=== PATIENT | female | born 1945 | race Caucasian/White ===

== ENCOUNTER 2016-06-23 15:35 | Inpatient (IN) | payer OTHER ==
--- NOTE | 2016-06-23 15:52 | PROVIDER DOCUMENTATION ---
HPI-General Adult - General Chief Complaint: Altered Mental Status Stated Complaint: ams Time Seen by Provider: 06/23/16 15:45 Source: patient Allergies/Adverse Reactions: Patient Allergies Allergy/AdvReac Type Severity Reaction Status Date / Time Penicillins Allergy Mild Unknown Verified 06/23/16 15:38 morphine Allergy Unknown NAUSEA Verified 06/23/16 15:38 Home Medications: Home Medication List Medication Instructions Recorded Confirmed Last Taken Type Aripiprazole [Abilify] 20 mg PO QHS 03/19/16 03/19/16 1 Day Ago History Bisacodyl [Dulcolax] 10 mg PO DAILY PRN 03/19/16 03/19/16 Unknown History Calcium Carbonate/Vit D3 [Caltrate 1 each PO DAILY 03/19/16 03/19/16 03/19/16 History 600 + D] Diphenoxylate/Atropine [Lomotil] 1 each PO 4XDAY PRN PRN 03/19/16 03/19/16 Unknown History Divalproex [Depakote] 1,000 mg PO QHS 03/19/16 03/19/16 03/18/16 History Furosemide [Lasix] 60 mg PO QAM 03/19/16 03/19/16 03/19/16 History Iron,Carbonyl/Ascorbic Acid [Fe C 1 each PO BID 03/19/16 03/19/16 03/19/16 History Tablet] Nystatin Cream [Mycostatin Cream] 1 applicatn TOP TID 03/19/16 03/19/16 History Potassium Chloride 20 meq PO QAM 03/19/16 03/19/16 03/19/16 History Ranitidine HCl [Zantac] 300 mg PO QAM 03/19/16 03/19/16 03/19/16 History Spironolactone [Aldactone] 25 mg PO DAILY 03/19/16 03/19/16 03/19/16 History Tizanidine HCl [Zanaflex] 4 mg PO BID PRN PRN 03/19/16 03/19/16 Unknown History Fentanyl 100 Microgm/Hr Patch 1 each TD Q72H #2 patch 03/28/16 Unknown Rx [Duragesic 100 Microgm/Hr Patch] Hydrocodone/APAP 10 mg/325 mg 1 each PO Q6H PRN PRN #30 tablet 03/28/16 Unknown Rx [[place]ty-10] Mirtazapine [Remeron] 15 mg PO QHS #90 tablet 03/28/16 Unknown Rx Risperidone [Risperdal] 1 mg PO QAM #90 tablet 03/28/16 Unknown Rx - History of Present Illness -Gen Adult Nature of Presenting Problems: 70 yo WF is brought to ED by EMS from [facility] with cc of altered mental status. Upon arrival to ED, pt is a&o x 3. She does complain of generalized abdominal pain, and she has recent hx of UTI being treated by abx with 3 days left of her course. Location of Pain/Injury: reports: abdomen (generalized tenderness) Pain Radiation: reports: no radiation Severity: reports: mild Onset/Duration: reports: abrupt, just prior to arrival Timing: reports: still present, improving Context/Activities at Onset: reports: none Associated Symptoms: reports: other (altered mental status) Review of Systems - Adult - REVIEW OF SYSTEMS - ADULT Constitutional: reports: no symptoms reported. denies: chills, fever Eyes: reports: no symptoms reported. denies: blurred vision, double vision Ears, Nose, Mouth & Throat: reports: no symptoms reported. denies: ear discharge, sinus problem Cardiovascular: reports: no symptoms reported. denies: chest pain, syncope Respiratory: reports: no symptoms reported. denies: cough, shortness of breath Gastrointestinal: reports: abdominal pain Genitourinary: reports: other (current treatment for UTI, not chief complaint) Musculoskeletal: reports: no symptoms reported. denies: bone pain, joint swelling Integumentary: reports: no symptoms reported. denies: hives, mole changes Neurological: reports: other (altered mental status). denies: headache/ migraines, numbness Psychiatric: reports: no symptoms reported. denies: anxiety, depression Endocrine: reports: no symptoms reported. denies: cold intolerance, heat intolerance Hematologic/Lymphatic: reports: no symptoms reported. denies: blood clots, lymphedema Allergic/Immunologic: reports: no symptoms reported. denies: allergic reactions , eczema All Other Systems: Reviewed and Negative Past History - Adult - PAST MEDICAL HISTORY-ADULT Review of Records: reports: Old Records Reviewed, Nursing Assessment Review, Medications Reviewed Cardiovascular: reports: CHF, HTN, other (carotid blockage) Respiratory: reports: COPD, other (pulmonary fibrosis) Neurological: reports: other (bipolar ) Psychiatric: reports: bipolar Other Conditions: reports: other (IJ bypass ) - PRIOR SURGERIES/PROCEDURES Surgical/Procedure History: reports: hysterectomy, other (cystoscopy ) - IMMUNIZATION STATUS Childhood Immunizations: See Nurse Assessment Flu Vaccine: See Nurse Assessment - FAMILY HISTORY Family History: reviewed, not pertinent Physical Exam-General - PHYSICAL EXAM-ADULT Initial Vital Signs Reviewed: Yes - CONSTITUTIONAL General Appearance: alert, mild distress - EYES Eyes: PERRL/EOMI, pink conjunctivae - HEAD, EARS, NOSE, MOUTH & THROAT HENMT: normocephalic/atraumatic, moist mucous membranes - NECK Neck: limited range of motion (hx chronic neck pain) - RESPIRATORY Respiratory: chest non-tender, lungs clear, normal breath sounds - CARDIOVASCULAR Cardiovascular: normal peripheral pulses, systolic murmur - GASTROINTESTINAL (ABDOMEN) Abdominal Exam: normal bowel sounds, soft, tenderness (generalized) - GENITOURINARY Female Genitalia/Pelvic Exam: deferred Rectal Exam: deferred Hemoccult Exam: heme positive stool - LYMPHATIC Lymphatic: no adenopathy - MUSCULOSKELETAL Back Exam: normal inspection, no vertebral tenderness Extremity: swelling (bilateral to thighs) - SKIN Integumentary: pallor - NEUROLOGIC Neurologic: grossly normal, no motor/sensory deficits - PSYCHIATRIC Psych/Mental Status: normal mood/affect, normal thought content, normal thought process, oriented x 3 Progress - CONSULTS/PCP/HOSPITALIST Notification #1 *Consult/PCP/Hospitalist*: Dr. Reed Time Discussed: 15:56 Reason/Comments: GI consult Departure - Departure Condition: Stable Attestation - Scribe Verification/Attestation Scribe:: Sabrina Pride Acting as Scribe for:: Adarsh Patel Scribe documention review:: This chart was documented by a scribe and accurately reflects the service the provider performed and the decisions made by the provider. - Physician/ ADRIAN Attestation Patient care was provided by Advanced Practice Provider:: No
[2016-06-23 17:12] LABS: URINE CULTURE PL NEEDED? NO; URINE SOURCE CATH
[2016-06-23] MEDS ORDERED: NS 500 ML IV ONE ×2 (17:17→17:39)
[2016-06-23 17:19] LABS: BILIRUBIN URINE NEGATIVE (NEGATIVE); BLOOD URINE NEGATIVE (NEGATIVE); CLARITY CLEAR (CLEAR); COLOR YELLOW; GLUCOSE URINE NEGATIVE (NEGATIVE); LEUKOCYTES URINE NEGATIVE (NEGATIVE); NITRITE URINE NEGATIVE (NEGATIVE); PROTEIN URINE NEGATIVE (NEGATIVE); UROBILINOGEN URINE NORMAL
[2016-06-23 17:22] LABS: URINE EPITHELIAL CELLS <10 /HPF (<10)
[2016-06-23 17:25] LABS: ALBUMIN 2.2 g/dL (3.5-5.0); CALCIUM 8.3 mg/dL (8.8-10.2); POTASSIUM 5.6 mmol/L (3.5-5.1); TOTAL BILIRUBIN 0.4 mg/dL (0.20-1.00); TOTAL PROTEIN 5.6 g/dL (6.3-8.3)
[2016-06-23 17:26] LABS: INR 1.41 (0.86-1.15); PROTIME 17.5 Seconds (12.1-15.5)
[2016-06-23 17:27] LABS: PTT PL 37.3 Seconds (22.6-43.9)
[2016-06-23 17:30] LABS: BASO% 0.6 % (0.0-0.8); EOS# 0.03 X1000 (0.0-0.7); EOS% 0.5 % (0.0-10.0); HEMATOCRIT 18.5 % (37.0-47.0); HEMOGLOBIN 5.7 g/dL (12.0-16.0); IMM GRAN# 0.44 X1000 (0.0-0.04); IMM GRAN% 6.9 % (0.0-0.5); LYMPH# 1.29 X1000 (1.2-3.4); LYMPH% 20.3 % (20.5-51.1); MANUAL DIFF NEEDED? NO; MCH 29.7 PG (27-31); MCHC 30.8 g/dL (33-37); MCV 96.4 FL (81-99); MONO# 0.49 X1000 (0.11-0.59); MONO% 7.7 % (1.7-9.3); MPV 9.8 FL (7.4-10.4); PLT 42 X1000 (130-400); RBC 1.92 XMIL (4.2-5.4)
[2016-06-23 17:31] LABS: UR AMPHETAMINES QUAL NONE DETECTED (NONE DETECT); UR BARBITUATES QUAL NONE DETECTED (NONE DETECT); UR BENZODIAZEPIN QUAL NONE DETECTED (NONE DETECT); UR COCAINE QUAL NONE DETECTED (NONE DETECT); UR MDMA QUAL NONE DETECTED (NONE DETECT); UR METHADONE QUAL NONE DETECTED (NONE DETECT); UR METHAMPHETAMINE QUAL PRESUMPTIVE POSITIVE (NONE DETECT); UR OPIATES QUAL PRESUMPTIVE POSITIVE (NONE DETECT); UR OXYCODONE QUAL NONE DETECTED (NONE DETECT)
[2016-06-23 17:32] LABS: UR CANNABINOIDS QUAL NONE DETECTED (NONE DETECT); UR PCP QUAL NONE DETECTED (NONE DETECT); UR TCA QUAL NONE DETECTED (NONE DETECT)
[2016-06-23] MEDS ORDERED: PROTONIX 80 MG in NS 80 ML IV ONE (17:41)
[2016-06-23] MEDS ORDERED: PROTONIX 80 MG in NS 80 ML IV SCH (17:45)
[2016-06-23] MEDS ORDERED: ZOFRAN IV PRN (17:48)
[2016-06-23 17:59] LABS: CK INDEX 1.1 (0.0-2.5); CK-MB 3.7 ng/mL (0.0-5.0)
[2016-06-23] MEDS ORDERED: NS 1,000 ML IV SCH (18:00)
--- NOTE | 2016-06-23 18:07 | Diag Imaging Result Document ---
PROCEDURE NAME: CHEST-PORTABLE - 06/23/2016 PORTABLE CHEST: COMPARISON: Compared to several prior exams. Poor inspiratory effort. There are increased interstitial markings in both lungs. These are most pronounced in the mid left lung. Findings are quite similar to that of multiple prior studies. No pleural effusions identified. IMPRESSION: Increased interstitial markings consistent with fibrosis. Findings are most pronounced in the mid left lung.
[2016-06-23 19:39] LABS: OCCULT BLOOD 1 POSITIVE (NEGATIVE)
[2016-06-23] MEDS ORDERED: VANCOMYCIN IV PER PHARMACY MISC SCH (19:45)
[2016-06-23] MEDS ORDERED: INVANZ 1 GM/NS 50 ML IV SCH (20:15)
[2016-06-23] MEDS: INVANZ IV SCH (20:53)
[2016-06-23] MEDS: NS IV SCH (20:53)
[2016-06-23] MEDS ORDERED: VITAMIN K SUBQ ONE ×2 (22:28→22:45)
[2016-06-23 23:14] LABS: HEMATOCRIT 23.1 % (37.0-47.0); HEMOGLOBIN 7.5 g/dL (12.0-16.0); MCH 30.6 PG (27-31); MCHC 32.5 g/dL (33-37); MCV 94.3 FL (81-99); MPV 8.6 FL (7.4-10.4); RBC 2.45 XMIL (4.2-5.4)
[2016-06-23] MEDS ORDERED: LASIX IV ONE (23:41)
[2016-06-23 23:55] LABS: CK-MB 3.7 ng/mL (0.0-5.0)
--- NOTE | 2016-06-24 04:04 | HISTORY AND PHYSICAL ---
CHIEF COMPLAINT: Altered mental status. HISTORY OF PRESENT ILLNESS: This is a 70-year-old female, who is a resident of [facility]. She presented to the emergency room via EMS with reports from [facility] staff saying that the patient was more altered than baseline. On arrival to the emergency room, she was alert and oriented. She could tell her birthday. She knew she was at the hospital, although she was not sure if it was [facility] or [facility] [place]. She was able to tell where she lived. She could give no specific complaint. When asked why she was here, she told me "because I would not do what they said, I would stand up, so then sent me here to teach me a lesson". At the time of the interview, the patient was in Trendelenburg with blood pressures that ran 96-98 to 104 systolic. Heart rate was 98-102. She was on oxygen at 3 L with saturations, that were 97-98%. There were no family present, so further information cannot be obtained. LABS: She was found to have a hemoglobin of 5.7, hematocrit 18.5, and platelets of 42,000. In review of her prior lab work, she was in the hospital in March and hemoglobin ranged 8-9.6 and hematocrit was 26-30. In review of the chart, I cannot find a prior history of GI bleed. MEDICATION LIST: The list is not available at this time, but she was not on any anticoagulants on discharge in March. She will be admitted to ICU at [facility] [place] for further evaluation and treatment. PAST MEDICAL HISTORY: Aortic stenosis, chronic obstructive pulmonary disease, atrial fibrillation, diastolic heart failure with an ejection fraction of 75% in March of 2016, bipolar disorder, gastroesophageal reflux disease, and myelodysplasia. She had a extended spectrum beta-lactamase positive Escherichia coli urinary tract infection in March,. She also has a culture from June 12 that is extended spectrum beta-lactamase positive, for which he underwent 3 weeks plus vancomycin and ertapenem. Received antibiotic coverage for in- hospitalization, as well as 3 weeks of vancomycin and ertapenem after discharge, finishing therapy in April 17, 2016. PAST SURGICAL HISTORY: Hysterectomy, ileal bypass, cystoscopy, carotid end arterectomy, looks like lower extremity bypass for peripheral vascular disease. SOCIAL HISTORY: She denies alcohol or illicit drug use. She smoked until 2 years ago. ALLERGIES: Penicillin and morphine with unknown reactions. HOME MEDICATIONS: A list will be obtained. DIAGNOSTICS: WBC is 6.37 with hemoglobin 5.7, hematocrit 18.5, and platelets of 42,000. INR is 1.41. Sodium is 128, potassium 5.6, BUN 43, creatinine 1.5, with a glucose of 97. Troponin is 0.033. Urinalysis is essentially negative. Urine drug screen is positive for opiates. Blood alcohol is 0. ASSESSMENT AND PLAN: 1. Altered mental status. We were unable to assess at present. We were not quite sure what the patient's baseline is. There are no family present. She will be placed in ICU with neurological checks and we will re-evaluate. 2. Gastrointestinal bleeds. I cannot find anywhere in the chart that the patient has a history of a prior gastrointestinal bleed. I cannot find documentation of any anticoagulation. She did have melena with reported occult positive stools in the emergency room. The hemoglobin and hematocrit is 5.7 and 18.5. She also has platelets of 42,000. She has been typed and crossed. We will give 2 units of packed cells, along with platelets. We will give Protonix bolus, followed by a Protonix drip. Dr. Yasir Sequeira and Gastroenterology has been notified per the ER physician, Dr. Adarsh Patel. 3. Acute kidney injury. Creatinine is 1.5, BUN is 43. In looking back her baseline has been 0.9- 1.2. She did have a history of retention. A Elias was placed and 500 returned. We will gently hydrate. We will hold any renal toxic medications. This could be from hypotension. If hypotension is a component, as stated before she will receive fluid and blood replacement. 4. Hypoxemia. She did have a room air saturation of 89% on arrival. She is on 3 L right now, maintaining sats 96-98%. We will continue oxygen. 5. Hypotension. Pressures have been as low as the 86/56. She was in slight Trendelenburg. We will start gentle hydration. Trend vital signs and administer blood. 6. Hyponatremia. 7. Hyperkalemia. We will continue to trend electrolytes. 8. History of aortic stenosis. 9. History of diastolic heart failure with an ejection fraction of 75% in March,. 10. Extended spectrum beta-lactamase positive Escherichia coli urinary tract infection. She had this in March and underwent a long-term of antibiotics of ertapenem and vancomycin. In reviewing her chart, she does have a culture from June 12, that once again has extended spectrum beta-lactamase positive Escherichia coli. We will consult Dr. Jules once again. We will get repeat vancomycin per pharmacy. Infectious Disease and antibiotics to follow. 11. Others. Further treatments pending hospital course. Dictated by RUTHIE Stanford for Mario Crawley MD
[2016-06-24] MEDS ORDERED: PROTONIX IV SCH (06:00)
[2016-06-24] MEDS ORDERED: ZOFRAN IV PRN (06:00)
[2016-06-24] MEDS: PROTONIX 80 MG in NS 80 ML IV SCH ×2 (06:42→16:14)
[2016-06-24] MEDS ORDERED: PROTONIX 80 MG in NS 80 ML IV ONE (07:00)
[2016-06-24] MEDS: NS 1,000 ML IV SCH (08:00)
[2016-06-24 09:13] LABS: ALBUMIN 2.5 g/dL (3.5-5.0); CALCIUM 8.4 mg/dL (8.8-10.2); TOTAL BILIRUBIN 0.51 mg/dL (0.20-1.00); TOTAL PROTEIN 5.9 g/dL (6.3-8.3)
[2016-06-24 09:26] LABS: INR 1.27; PROTIME 12.9 Seconds (9.2-11.7)
[2016-06-24 09:32] LABS: HEMATOCRIT 24.8 % (37.0-47.0); HEMOGLOBIN 8.1 g/dL (12.0-16.0); MCH 30.6 PG (27-31); MCHC 32.7 g/dL (33-37); MCV 93.6 FL (81-99); MPV 8.3 FL (7.4-10.4); RBC 2.65 XMIL (4.2-5.4)
[2016-06-24] MEDS: SANDOSTATIN 500 MICROGM in D5W 100 ML IV SCH (09:38)
[2016-06-24 09:45] LABS: CK INDEX 0.9 (0.0-2.5); CK-MB 2.74 ng/mL (0.0-5.0)
--- NOTE | 2016-06-24 10:39 | PROGRESS NOTE ---
DATE: 06/24/2016 SUBJECTIVE: Ms. Valentino said, "Please, let me go home today." She is still in the unit. Very weak, confused. She is oriented to person. She knows she is in the hospital but otherwise trouble certainly with abstract thought and with executive functions. PHYSICAL EXAMINATION: Vital Signs: Temperature 98 degrees, pulse 100, respirations 20, blood pressure 98/68. HEENT: Pupils are equal, round. CVP less than 6 cm. Lungs: Clear in all lung prieto. Cardiovascular Examination: Regular rhythm and rate without murmur or S3. Abdomen: Soft. Skin: Warm and dry. Urine output 1250. LABORATORY DATA: White count 5970, hematocrit 24, platelet count 72,008. Sodium 136, potassium 5, chloride 90, BUN 42, creatinine 1.3. Troponin has been 0.033, 0.025, and 0.024. Chest x-ray from yesterday on arrival, increased interstitial markings consistent with fibrosis. Findings are most pronounced in the mid left lung. REVIEW: This is a 70-year-old, white female, resident of [facility]. Presented to the emergency room with EMS, reports from [facility] staff saying the patient was more altered than baseline. On arrival to the emergency room, she was alert and oriented. Could tell her birthday. She knew she was at the hospital, although she is not sure if she was at [facility] or [facility]. She was able to tell where she lives. She gave no specific complaint. When asked why she was here, she told me "because I would not do what they said. I would stand up so then they sent me to teach me a lesson." At that time in the interview, the patient was in Trendelenburg with blood pressures that were 96-98-104 systolic. Her rate was 98- 102. O2 was at 3 L, saturations 97-98%. Labs found hemoglobin of 5.7, hematocrit 18.5, platelet count of 42,008. In review of her old lab work, hemoglobin was 8.9-9.6 and hematocrit usually runs 26-30. Admitted with altered mental status, gastrointestinal bleed, acute kidney injury. Creatinine 1.5. Baseline is 0.9-1.2. Hypoxemia and hypotension, hyponatremia, hypokalemia, history of aortic stenosis, history of diastolic heart failure. Ejection fraction apparently was 75% in March 2016. She has had a history of extended spectrum beta lactamase positive E. coli urinary tract infection. She had this in March. Long-term antibiotics, on ertapenem and vancomycin for extended-spectrum beta lactamase positive E. coli. Dr. Jules has been consulted on the case as well for that history. EXAMINATION: General: Today awake as I reported. Vital Signs: Temperature 98 degrees, pulse 102, respirations 20, blood pressure 98/68. Lungs: Clear in all lung prieto. Cardiovascular Examination: Regular rhythm and rate without murmur or S3. Abdomen: Soft. Skin: Warm and dry. Is and Os: Urine output was 1250. REST OF LABS: Sodium 136, potassium 5, chloride 93, BUN 42, creatinine 1.3. AST 41, ALT 12, alkaline phosphatase 164. ASSESSMENT AND PLAN: 1. Altered mental status. I suspect this is multifactorial. Nurses remember him from before. I am not sure how far we are from baseline. I suspect some underlying dementia. 2. Gastrointestinal bleed. She is supposed to get an esophagogastroduodenoscopy today. Hematocrit and hemoglobin appear to be stable. She was given 2 units of blood. 3. Acute kidney injury. I suspect this will improve with volume. Suspect it is mainly prerenal. 4. Hypoxemia. She does appear to have some fibrosis on her chest x-ray. I do not see any active infection or infiltrate. 5. Hypotension. Continue to give her intravenous fluids. 6. Hyponatremia. Once again, I think intravenous fluids would be luong. Her mucous membranes appear dry. 7. History of diastolic failure so continue present measures. Continue present orders.
[2016-06-24] MEDS ORDERED: MYLICON DROPS (DOSE) MISC ONE (11:07)
--- NOTE | 2016-06-24 11:19 | Diag Imaging Result Document ---
PROCEDURE NAME: US ABDOMEN-COMPLETE - 06/24/2016 ULTRASOUND ABDOMEN COMPLETE, 06/24/2016: COMPARISON: Renal ultrasound 03/25/2016. FINDINGS: The exam is technically challenging due to patient noncooperation. There are a couple of rather large shadowing gallstones in the gallbladder measuring up to 1.4 cm. No gallbladder wall thickening or free fluid. The liver and pancreas are normal. The right kidney is normal. The spleen and left kidney were not visible due to patient noncooperation. Aorta IVC and main portal vein are patent. The common bile duct measures 4 mm. IMPRESSION: Cholelithiasis.
[2016-06-24] MEDS ORDERED: DIPRIVAN 1% ONE (12:01)
[2016-06-24] MEDS ORDERED: XYLOCAINE-MPF 2% ONE (12:52)
[2016-06-24] MEDS ORDERED: ANESTHESIA PB SET 88 IN 5742 ONE (12:52)
[2016-06-24] MEDS ORDERED: LR 1,000 ML ONE (12:52)
--- NOTE | 2016-06-24 13:11 | OPERATIVE NOTE ---
PROCEDURE DATE: 06/24/2016 PROCEDURE PERFORMED: Esophagogastroduodenoscopy. PROVIDER: Aristeo Cason MD PREOPERATIVE DIAGNOSES: 1. Melena. 2. Anemia. 3. Elevated liver enzymes, thrombocytopenia (platelet count 42,000), and coagulopathy (INR 1.4), unknown etiology, question of chronic liver disease. 4. Altered mental status on admission and it has improved. POSTOPERATIVE DIAGNOSES: 1. Normal esophagus in the proximal and middle 1/3. 2. Distal esophagus showing erythema and erosions, suggesting [place] grade 2 distal esophagitis. 3. Z-line visualized at 35 cm, irregular. 4. Hiatal hernia, measuring 3 cm. 5. Bile in the stomach, suction out. 6. Gastritis-like, chronic appearing, in the body antrum. 7. Normal fundus, cardia, and incisura on retroflexion. 8. Normal duodenal bulb and 2nd portion of duodenum. No evidence of active bleeding, fresh or old blood, on the entire esophagogastroduodenoscopy. ESTIMATED BLOOD LOSS: None. COMPLICATIONS: None. ANESTHESIA: Monitored anesthesia care. SPECIMENS: None. DESCRIPTION OF PROCEDURE: After informed consent from the patient, explaining the risks, benefits, indications, and alternatives, the patient was prepared for EGD. The risks of the procedure, including infection, bleeding, pain, trauma to the surrounding structures, perforation, , were explained to the patient, among others, and she acknowledged understanding and agreed to proceed. The patient was brought to the OR and turned into the left lateral position. A bite block was placed. After adequate monitored anesthesia care, the upper scope was gently introduced through the oral vestibule all the way to the 2nd portion. The esophagus was normal in the proximal and middle 1/3. The distal esophagus revealed erythema and erosions, suggesting esophagitis, LA grade 2. The Z-line was visualized 35 cm. There was evidence of a hiatal hernia, measuring 3 cm. The scope was then introduced to the stomach. There was evidence of bile in the stomach, which was suctioned out. The underlying gastric mucosa showed evidence of mucosal edema, suggesting chronic gastritis. Retroflexion revealed normal fundus, cardia, and incisura. We did not perform biopsy. The patient has thrombocytopenia and anemia. There was no evidence of any gastric varices. The scope was gently advanced to the duodenum, which showed normal duodenal bulb and 2nd portion. There was no evidence of active bleeding, fresh or old blood, in the entire EGD. There was no evidence of any esophageal varices. The air was aspirated as the scope was withdrawn. The patient tolerated the procedure well and is currently being monitored in the OR in stable condition. I discussed the findings with the patient upon waking up and all questions were answered. RECOMMENDATIONS: 1. The patient will be on Protonix once daily. 2. We will watch her hemoglobin and hematocrit and transfuse as needed. 3. We will perform chronic liver disease workup and check an ultrasound to evaluate for liver cirrhosis. 4. We will schedule for colonoscopy tomorrow for anemia workup. 5. Further recommendations to follow pending the above. [facility]
[2016-06-24] MEDS ORDERED: GOLYTELY PO ONE (14:00)
[2016-06-24] MEDS: NS IV SCH (20:38)
[2016-06-24] MEDS: INVANZ IV SCH (20:38)
[2016-06-25] MEDS: PROTONIX 80 MG in NS 80 ML IV SCH ×4 (02:20→21:51)
[2016-06-25] MEDS: NS 1,000 ML IV SCH ×2 (02:20→11:50)
[2016-06-25] MEDS: SANDOSTATIN 500 MICROGM in D5W 100 ML IV SCH (05:15)
--- NOTE | 2016-06-25 07:43 | PROGRESS NOTE ---
DATE: 06/25/2016 SUBJECTIVE: Ms. Valentino is resting comfortably. Is easy to arouse. Breathing comfortably. OBJECTIVE: Vital Signs: Temperature 97 degrees, pulse 113, respirations 22, blood pressure 132/83. HEENT: Pupils are equal and round. Neck: CVP less than 6 cm. Lungs: Clear in all lung prieto. Cardiovascular: Regular rhythm and rate without murmur or S3. Urine output 435 mL. LAB: White count 5970, hematocrit 24, platelet count 72,000. That was from yesterday. Chemistry reviewed from yesterday sodium 136, potassium 5.0, chloride 93, BUN 40, creatinine 1.3. Mild elevation of AST at 41, ALT was 12, alkaline phosphatase 164. CPK 367, 319. Ammonia less than 10. Albumin 2.5. ASSESSMENT AND PLAN: 1. Altered mental status. Suspect multifactorial. 2. Gastrointestinal bleeding. Esophagogastroduodenoscopy was performed per Dr. Grady and found a normal esophagus. Distal esophagus showing erythema and erosions suggesting [place] Grade II distal esophagitis. Hiatal hernia measuring 3 cm. Bile in the stomach was suctioned out. Gastritis-like, chronic appearing in the body of atrium. Normal fundus, cardia, and incisura. Normal duodenal bulb and second portion of duodenum. No evidence of active bleeding. Had successful esophagogastroduodenoscopy. See what her hematocrit is. I think she got 2 units of blood. 3. Acute kidney injury. She had some hypoxemia. There is some fibrosis on chest x-ray. 4. She also had some hypotension. Blood pressure appears to be better.
[2016-06-25 09:13] LABS: BASO% 0.7 % (0.0-0.8); EOS# 0.05 X1000 (0.0-0.7); EOS% 0.7 % (0.0-10.0); HEMATOCRIT 26.1 % (37.0-47.0); HEMOGLOBIN 8.2 g/dL (12.0-16.0); IMM GRAN# 0.44 X1000 (0.0-0.04); IMM GRAN% 6.5 % (0.0-0.5); LYMPH# 1.13 X1000 (1.2-3.4); LYMPH% 16.7 % (20.5-51.1); MANUAL DIFF NEEDED? YES; MCH 29.4 PG (27-31); MCHC 31.4 g/dL (33-37); MCV 93.5 FL (81-99); MONO# 0.53 X1000 (0.11-0.59); MONO% 7.8 % (1.7-9.3); NEUT% 67.6 % (42.2-75.2); PLT 41 X1000 (130-400); RBC 2.79 XMIL (4.2-5.4)
[2016-06-25] MEDS ORDERED: CALMOSEPTINE OINTMENT TOP PRN (09:16)
--- NOTE | 2016-06-25 09:25 | Diag Imaging Result Document ---
PROCEDURE NAME: CHEST-PORTABLE - 06/25/2016 SINGLE FRONTAL RADIOGRAPH OF THE CHEST: COMPARISON: 06/23/2016. FINDINGS: Inspiration is suboptimal. There is extensive interstitial thickening throughout both lungs that is similar to the previous study consistent with known pulmonary fibrosis. There are increased perihilar densities. I suppose a superimposed infiltrate is possible. However, this is probably due to differences in positioning and exposure. No other new consolidations are identified. Cardiac silhouette is stable. IMPRESSION: Pulmonary fibrosis with slight increased density in the perihilar regions bilaterally but this could be technical.
[2016-06-25 10:10] LABS: BANDS 26 % (0-1); LYMPHS 14 % (21-51); MONO 2 % (1-9)
[2016-06-25 10:15] LABS: ALBUMIN 2.3 g/dL (3.5-5.0); CALCIUM 7.8 mg/dL (8.8-10.2); POTASSIUM 3.8 mmol/L (3.5-5.1); TOTAL BILIRUBIN 0.56 mg/dL (0.20-1.00); TOTAL PROTEIN 5.8 g/dL (6.3-8.3)
[2016-06-25] MEDS ORDERED: MYLICON DROPS (DOSE) MISC ONE (13:50)
[2016-06-25] MEDS ORDERED: VERSED ONE (14:33)
[2016-06-25] MEDS ORDERED: DIPRIVAN 1% ONE (14:34)
[2016-06-25] MEDS ORDERED: 1/2 NS 500 ML ONE (14:40)
[2016-06-25] MEDS ORDERED: ANESTHESIA PB SET 88 IN 5742 ONE (14:41)
--- NOTE | 2016-06-25 14:41 | OPERATIVE NOTE ---
PROCEDURE DATE: 06/25/2016 PROCEDURE: Flexible sigmoidoscopy. PREOPERATIVE DIAGNOSIS: Anemia. Patient is prepped for colonoscopy. POSTOPERATIVE DIAGNOSIS: Retained stool. Hard stool in the rectum, inadequate prep. DESCRIPTION OF PROCEDURE: After informed consent and adequate intravenous sedation by Anesthesia, the scope introduced and advanced into the sigmoid colon. However, the patient has retained stool. I was unable to wash it down because it was fairly firm. At this point, the scope was withdrawn. We will prep her until at least the rectum is empty from the hard stool and will repeat the colonoscopy in the morning.
[2016-06-25] MEDS ORDERED: GOLYTELY PO ONE (16:00)
[2016-06-25 16:28] LABS: HEPATITIS PROFILE ACUTE SEE COMMENTS (())
[2016-06-25] MEDS: NS IV SCH (20:42)
[2016-06-25] MEDS: INVANZ IV SCH (20:42)
[2016-06-26] MEDS ORDERED: LASIX IV ONE (00:57)
[2016-06-26] MEDS ORDERED: NS NEB INH SCH (01:00)
[2016-06-26] MEDS ORDERED: DUONEB (A & A) ONE (01:22)
[2016-06-26] MEDS: SANDOSTATIN 500 MICROGM in D5W 100 ML IV SCH ×2 (01:30→23:10)
[2016-06-26] MEDS: NS 1,000 ML IV SCH ×3 (01:30→23:11)
[2016-06-26] MEDS ORDERED: LEVOPHED 8 MG in D5 1/2 NS 250 ML IV SCH (03:00)
[2016-06-26 03:11] LABS: ALLEN TEST YES; BE 0.8 mmoll (-3.0-3.0); BLOOD TYPE ARTERIAL; DRAW SITE L RADIAL; METHB 1.6 % (0.0-1.5); PO2(98.6) 144 mmHg (60-100); SAMPLE BLOOD; SAO2 98.4 % (95.0-100.0); THB 8.7 g/dL (11.5-17.4)
[2016-06-26 03:12] LABS: pH(98.6) 7.17 (7.35-7.45)
[2016-06-26 03:13] LABS: MODALITY PRB; PCO2(98.6) 83 mmHg (35-45)
[2016-06-26 03:48] LABS: BASO% 1.2 % (0.0-0.8); EOS# 0.06 X1000 (0.0-0.7); EOS% 0.7 % (0.0-10.0); HEMATOCRIT 26.4 % (37.0-47.0); HEMOGLOBIN 8.3 g/dL (12.0-16.0); IMM GRAN# 0.63 X1000 (0.0-0.04); LYMPH# 1.37 X1000 (1.2-3.4); LYMPH% 15.3 % (20.5-51.1); MANUAL DIFF NEEDED? YES; MCH 30.1 PG (27-31); MCHC 31.4 g/dL (33-37); MCV 95.7 FL (81-99); MONO# 0.81 X1000 (0.11-0.59); MONO% 9.1 % (1.7-9.3); MPV 10.1 FL (7.4-10.4); NEUT% 66.7 % (42.2-75.2); PLT 75 X1000 (130-400); RBC 2.76 XMIL (4.2-5.4)
[2016-06-26 03:54] LABS: INR 1.07; PROTIME 10.9 Seconds (9.2-11.7); PTT 23.7 Seconds (22.0-36.0)
[2016-06-26 04:00] LABS: RETIC% 1.62 % (0.8-2.1); RETIC-HE 31.4 PG (28.2-36.6)
[2016-06-26 04:12] LABS: TOTAL IRON 106 ug/dL (49-151)
[2016-06-26 04:22] LABS: LDH 1213 U/L (135-214)
[2016-06-26 04:25] LABS: BANDS 14 % (0-1); BASO 2 % (0-1); LYMPHS 18 % (21-51); MONO 8 % (1-9); NRBC 1 % (0-0)
--- NOTE | 2016-06-26 07:42 | Diag Imaging Result Document ---
PROCEDURE NAME: CHEST-PORTABLE - 06/25/2016 PORTABLE CHEST X-RAY AT 1750 HOURS: COMPARISON: 0815 hours. FINDINGS: There is a new nasogastric tube with the tip in the stomach. Stable bilateral infiltrates. IMPRESSION: Nasogastric tube with the tip in the stomach.
--- NOTE | 2016-06-26 07:52 | Diag Imaging Result Document ---
PROCEDURE NAME: CHEST-PORTABLE - 06/26/2016 PORTABLE CHEST X-RAY: COMPARISON: 06/25/2016. FINDINGS: Stable nasogastric tube in good position. Stable dense bilateral infiltrates. Heart size is enlarged. Stable low lung volumes. IMPRESSION: No change from prior.
[2016-06-26] MEDS: XOPENEX NEB INH PRN ×3 (08:36→16:19)
[2016-06-26] MEDS: ATROVENT NEB INH PRN ×3 (08:36→16:19)
[2016-06-26] MEDS ORDERED: VITAMIN K SUBQ ONE (09:32)
--- NOTE | 2016-06-26 10:10 | PROGRESS NOTE ---
DATE: 06/26/2016 SUBJECTIVE: Ms. Valentino apparently had a rough night. Her blood pressure started dropping. She has atrial fibrillation. Rate increased. OBJECTIVE: Vital signs: On exam, she is afebrile, temp 98.4. Pulse 100, respirations 26, blood pressure 139/72. HEENT: Pupils are equal, round, and reactive to light and accommodation. Lungs: Some scattered rhonchi but do not appreciate rales. Scattered rhonchi through lung prieto. Cardiovascular: Regular rhythm and rate without murmur or S3. Abdomen: Soft. Skin: Warm and dry. Urine output 1300 mL. LAB: White count 8950, hematocrit 26, platelet count 75,000. Sodium 130. This is from yesterday. Sodium was 138, potassium 3.8, chloride 95, bicarb 22, BUN 34, creatinine 1.1. IMAGING: Chest x-ray from this morning no change. Stable nasogastric tube in good position, stable dense bilateral infiltrates. Heart size enlarged. Stable low lung volumes. ASSESSMENT AND PLAN: 1. Altered mental status, multifactorial. 2. Gastrointestinal bleeding. They would like to do an EGD but they are going to postpone this. Blood pressure dropped, heart rate went up and required some pressors through the night. 3. Acute kidney injury. 4. Had some hypoxemia on presentation and a little more shortness of breath last night. 5. Bilateral infiltrates. She does have underlying fibrosis, apparently, as well. I think I am going to get Pulmonary involved as well as Cardiology to try and sort out why she is having more dyspnea, to what extent is this related to left ventricular dysfunction. Looking through the orders, I am going to go back on the normal saline at 75 mL/h. because she is on the octreotide. I do not see evidence of active bleeding at this time.
[2016-06-26] MEDS: PROTONIX 80 MG in NS 80 ML IV SCH ×3 (10:17→20:36)
--- NOTE | 2016-06-26 12:17 | CONSULTATION ---
DATE OF CONSULTATION: 06/26/2016 INDICATION: Atrial fibrillation. HISTORY OF PRESENT ILLNESS: Ms. Valentino is a 70-year-old white female, who is a resident of [facility]. She presented for evaluation on the and the initial report was that she was having altered mental status but it was unclear on her presentation whether this was truly occurring. She was noted to have a new anemia with no previous history of GI bleed; however, she does have a history of MDS. She was admitted for further evaluation. Over the course of the hospitalization, she has continued to deteriorate. She has been evaluated by GI and was found to have esophagitis, hiatal hernia, and gastritis. No clear evidence of active bleeding. She has some presence of acute kidney injury, as well as hypotension. She seems to be deteriorating from a respiratory standpoint as well. She was placed on BiPAP ultimately. Last night she went into atrial fibrillation and more recently has been noted to be in sinus rhythm this morning. Presently, she is on BiPAP with an inspiratory pressure 20 and expiratory pressure of 6. She is not able to really give much history, as she is very somnolent, but seems to be able to understand questioning. PAST MEDICAL HISTORY: 1. Significant for aortic stenosis. Previous echo suggested it was in a moderate area with a mean gradient of 34 and a valve area of 1.3. EF's at that time were normal. 2. Diastolic heart failure. 3. Mild coronary disease. 4. History of peripheral vascular disease. 5. Hypertension. 6. Carotid artery disease. 7. Seizure disorder. 8. Myelodysplastic syndrome. 9. Reflux disease. SOCIAL HISTORY: No alcohol or illicit drugs. She currently lives at [facility]. FAMILY HISTORY: Unable to be obtained secondary to BiPAP being in place presently. REVIEW OF SYSTEMS: Unable to be obtained secondary to BiPAP being in place presently. PHYSICAL EXAMINATION: During this hospitalization she has been afebrile. Heart rate presently is in the low 100 with a blood pressure 139/72.General Appearance: Generally, she is an ill- appearing white female. Somewhat pale. No acute distress. HEENT: Eye examination shows pale conjunctivae. White sclerae. Neck Examination: No obvious thyromegaly or thyroid tenderness. Cardiovascular: She is in a tachycardic and regular rhythm. Currently in sinus. She has a 2 to 3/6 systolic murmur at the right upper sternal border. She has no lower extremity edema. Warm and well perfused lower extremities. Chest Examination: Has coarse bilateral breath sounds throughout. No increased work of breathing. She is currently on BiPAP. Abdomen: Soft, nontender, nondistended. Good bowel sounds. Skin Examination: Warm and dry throughout without any rashes. Neurologic Examination: Very difficult to perform secondary to the patient's decreased level of mentation. Psychiatric Examination: Very difficult to perform secondary to the patient's decreased level of mentation. Chest x-ray shows NG tube in good position. Stable dense bilateral infiltrates. LABORATORY DATA: Demonstrates a white count 8.9, hematocrit 26.4, platelet count is 75,000. Her ABG shows a pH of 7.17, pCO2 of 83, pO2 is 144. Yesterday her sodium is 138, potassium 3.8, BUN 34, creatinine 1.1. She had a ferritin of 17 and 95. Her LDH level is 1213. She had an echocardiogram on the 25 of March showing an ejection fraction greater than 75%. She had a mean gradient of 32 across her aortic valve with a valve area of 1.64. This was mild, bordering on moderate aortic stenosis. Moderate insufficiency. The valve opens well. ASSESSMENT: 1. Atrial fibrillation. 2. Anemia with history of MDS and possible new gastrointestinal bleed. 3. Hypercapnic respiratory failure. PLAN: At this point, the patient has converted over into sinus rhythm. I will check a proBNP in the morning. We will recheck an echo. Further recommendations to follow.
--- NOTE | 2016-06-26 17:15 | PROGRESS NOTE ---
DATE: 06/26/2016 Currently resting in bed. She is on a BiPAP mask. Overnight, she had deterioration in her respiratory status and developed new onset atrial fibrillation with rapid ventricular response. She also developed hypotension. She was initially supposed to have a colonoscopy today but was canceled because of worsening cardiopulmonary status. At this time the patient is still on the BiPAP mask and she has NG tube in place. She continues to have diarrhea secondary to bowel prep and according to the nurses stool was noted black tarry in color. Vital signs: Temperature of 98.8 degrees, pulse rate of 101, respiratory rate 22, blood pressure 120/59, saturating 90% on BiPAP at 60% FiO2. General appearance: Thinly built, lying in bed, in no acute distress. HEENT: Positive BiPAP mask. Positive pallor, no icterus. Neck: Supple. Abdomen: Soft, nontender, nondistended. No guarding or rebound. Extremities: No cyanosis, clubbing. Neurologic: She was awake and was able to nod to some questions and she was unable to verbalize as she had a BiPAP mask. LABS: Her hemoglobin and hematocrit is 8.3, 26.4, white count of 8.9, platelet count of 75,000, which is improving. Sodium of 138, potassium 3.8 from yesterday. Ferritin level 1795. Iron level of 106. AST yesterday 37, ALT 12, alkaline phos 156. Total protein is 5.8, albumin of 2.3. Ammonia less than 10. LDH 1213. Stool for occult blood was positive. HANNA is positive, anti-DS DNA was positive. Her hepatitis panel was nonreactive. IMPRESSION AND PLAN: 1. GI bleeding. Negative EGD and colonoscopy could not be performed this morning because of deterioration in cardiopulmonary status. We will hold off for now. We will continue to treat her symptomatically for now and transfuse as needed and once her cardiopulmonary status improves we will perform a colonoscopy. 2. Myelodysplastic syndrome complicated with thrombocytopenia, anemia. Being followed by Dr. Laurel Gamez. Continue to transfuse as needed. 3. Mildly elevated liver enzymes, AST more than ALT, but normal ammonia levels. Negative hepatitis panel. We will follow the chronic liver disease workup. We will follow up on ammonia levels, SPEP and alpha 1 antitrypsin level, and antimitochondrial antibody. 4. Positive HANNA and positive anti-DS DNA. According to the patient, she has a history of lupus. She may need a workup in the form of complement per the primary care team. 5. We will discontinue Octreotide tomorrow after 72 hours. We will continue on Protonix twice daily for now. 6. Further recommendations to follow pending the hospital course. AGUSTIN
[2016-06-26] MEDS ORDERED: CARDIZEM IV ONE (17:19)
[2016-06-26] MEDS: CARDIZEM 100 MG/NS 100 ML IV SCH ×2 (17:26→23:11)
[2016-06-26] MEDS ORDERED: PROTONIX IV SCH (17:41)
[2016-06-26] MEDS: INVANZ IV SCH (20:20)
[2016-06-26] MEDS: NS IV SCH (20:20)
[2016-06-26] MEDS ORDERED: TYLENOL PO PRN (21:00)
[2016-06-26] MEDS: ULTRAM PO PRN (21:14)
[2016-06-27] MEDS: PROTONIX IV SCH ×2 (06:13→18:43)
[2016-06-27] MEDS: PROTONIX 80 MG in NS 80 ML IV SCH (06:13)
[2016-06-27 07:37] LABS: BASO% 0.4 % (0.0-0.8); EOS# 0.03 X1000 (0.0-0.7); EOS% 0.6 % (0.0-10.0); HEMATOCRIT 21.4 % (37.0-47.0); HEMOGLOBIN 6.7 g/dL (12.0-16.0); IMM GRAN# 0.29 X1000 (0.0-0.04); IMM GRAN% 5.5 % (0.0-0.5); LYMPH# 1.04 X1000 (1.2-3.4); LYMPH% 19.5 % (20.5-51.1); MANUAL DIFF NEEDED? YES; MCHC 31.3 g/dL (33-37); MONO# 0.48 X1000 (0.11-0.59); MPV 9.5 FL (7.4-10.4); RBC 2.23 XMIL (4.2-5.4)
[2016-06-27 07:39] LABS: PLT 35 X1000 (130-400)
--- NOTE | 2016-06-27 07:57 | EKG Report ---
Test Performed on : 06/26/2016 02:33:53 AM Test Reason : AMS Blood Pressure : / mmHG Vent. Rate : 163 BPM Atrial Rate : 131 BPM P-R Int : 000 ms QRS Dur : 086 ms QT Int : 282 ms P-R-T Axes : 000 056 191 degrees QTc Int : 464 ms Atrial fibrillation. with rapid ventricular response. Marked ST abnormality, possible lateral subendocardial injury Abnormal ECG When compared with ECG of 26-JUN-2016 02:32, (Unconfirmed) No significant change was found Confirmed by Ariane OSBORNE, Fuad Beck ([id number]) on 06/29/2016 1:12:55 PM
[2016-06-27 08:10] LABS: BANDS 10 % (0-1); LYMPHS 24 % (21-51); MONO 6 % (1-9)
[2016-06-27] MEDS: ULTRAM PO PRN ×2 (08:21→20:10)
[2016-06-27] MEDS: CARDIZEM 100 MG/NS 100 ML IV SCH ×2 (08:22→14:34)
--- NOTE | 2016-06-27 08:25 | PROGRESS NOTE ---
DATE: 06/27/2016 SUBJECTIVE: Ms. Valentino is on BiPAP. She was resting, easy to arouse. PHYSICAL EXAMINATION: Vital Signs: Temperature 97.1 degrees, pulse 78, respirations 29, blood pressure 102/55. HEENT: Pupils were equal and round. CVP less than 6 cm. Respiratory: Lungs are clear anterolateral. Cardiovascular Examination: Regular rhythm and rate without murmur or S3. Abdomen: Soft. Skin: Warm and dry. Is and Os: Urine output looked good at 800 mL. LAB: White count 5320, hematocrit 21 and it was 26 yesterday, platelet count 35,000. Electrolytes reviewed from yesterday. Sodium 138, potassium 3.8, chloride 95, BUN 34, creatinine 1.1. Ferritin level was 1795, iron was 106. Magnesium 2.1. ASSESSMENT AND PLAN: 1. Gastrointestinal bleeding. Esophagogastroduodenoscopy and colonoscopy could not could not be performed because of deterioration. I guess esophagogastroduodenoscopy and colonoscopy cannot be performed because of the deterioration, cardiopulmonary status. We are going to hold off on that, hematocrit. We will follow. 2. Myelodysplastic syndrome. The platelet count has dipped down. Dr. Gamez is following. 3. Elevated liver enzymes, AST more than ALT but normal ammonia level. Negative hepatitis panel. Dr. Cason following. We will follow chronic liver disease workup with ammonia level, SPEP, and alpha 1 antitrypsin level, antimitochondrial antibody. 4. She has had a positive HANNA and positive [id number] DNA. According to the patient, has a history of lupus and this may need further evaluation. 5. I will discontinue the octreotide today. 6. Atrial fibrillation. I appreciate Dr. Paz's help. 7. Significant aortic stenosis. Previous echocardiogram suggested it was a moderate area with a mean gradient of 34 and a valve area of 1.3. Ejection fraction at the time normal. 8. She has Diastolic heart failure, mild coronary artery disease, and a history of peripheral vascular disease, as well as carotid artery disease. 9. History of seizure disorder. 10. Gastroesophageal reflux. Right now, she has hypercapnic respiratory failure along with anemia, underlying atrial fibrillation, and on BiPAP. We will continue Cardizem drip. She is still on octreotide, Protonix 40 mg intravenous every 12 hours, normal saline at 75 mL an hour. She is on Invanz 1 g every 24 hours, Ultram 50 mg every 6 hours.
[2016-06-27] MEDS: ATROVENT NEB INH PRN (08:52)
[2016-06-27] MEDS: XOPENEX NEB INH PRN (08:52)
--- NOTE | 2016-06-27 12:58 | PROGRESS NOTE ---
DATE: 06/27/2016 Subjective:In the ICU she continues to have trouble breathing. She is on BiPAP mask. She has not had bowel movement today. She had some NG tube drainage which was dark brownish in color. No fever or chills. Vitals: Temperature 97.8 degrees, pulse rate of 84, respiratory rate of 19, blood pressure of 99/50, saturating 94% on room air. General Appearance: Moderately nourished, lying in bed, and currently on BiPAP mask. HEENT: Pale conjunctiva. No icterus. BiPAP mask in place and NG tube in place. Neck: Supple. Abdomen: Is obese, mild distention noted. No guarding. No rebound. Extremities: No cyanosis, clubbing. Neurologic: She is awake, answers some simple questions by nodding. Could not verbalize very well because of the BiPAP mask. Labs reviewed. Medications: Reviewed IMPRESSION/PLAN: 1. GI bleeding. EGD was negative. Colonoscopy could not pass the rectal area because of fecal impaction. Once her hemodynamic status and respiratory status improves, we will elect to perform colonoscopy. 2. Myelodysplastic syndrome. Followed by Dr. Laurel Gamez. We may have to give a blood transfusion today. She has low platelets and low hematocrit. 3. Negative chronic liver disease workup. Normal ammonia level. 4. Positive HANNA and positive anti double strand DNA. According to the patient, she has a history of lupus. 5. Atrial fibrillation per Dr. Paz. 6. Significant aortic stenosis per Dr. Oscar Paz. 7. For reflux disease we will continue on Protonix IV b.i.d. 8. We will start a transfusion of 2 units blood today. 9. Nutrition. If the patient is able to have good bowel movements and her respiratory status improves, we will be able to start her on NG tube feeding if okay with the primary care team and the Pulmonary team. Otherwise we will have to consider Clinimix or TPN for nutrition. The above plan discussed with the patient and nurse. Further plans pending recommendations of Dr. Laurel Gamez, Dr. Oscar Paz and Dr. Fuad Thakkar. [facility]
[2016-06-27 13:10] LABS: INR 1.05; PROTIME 10.7 Seconds (9.2-11.7)
[2016-06-27 13:15] LABS: IRON SATURATION 63 %; TIBC 185 ug/dL; TOTAL IRON 116 ug/dL (49-151); UNBOUND IRON 69 ug/dL (112-346)
[2016-06-27] MEDS ORDERED: LASIX IV ONE (13:20)
--- NOTE | 2016-06-27 14:31 | CONSULTATION ---
DATE OF CONSULTATION: 06/27/2016 REFERRING PHYSICIAN: Dr. Thakkar. CHIEF COMPLAINT: Evaluation for respiratory failure, hypercarbia, COPD, possible congestive heart failure, anemia. HISTORY OF PRESENTING ILLNESS: This is a 70-year-old female with a past medical history of aortic stenosis, moderate degree, diastolic heart failure, coronary artery disease mild in nature, reflux disease, MDS, seizure disorder, carotid artery disease, hypertension, being seen in the hospital for atrial fibrillation, anemia. GI has seen. Had endoscopy. Cardiology has seen. Oncology has seen for myelodysplastic syndrome, anemia, and thrombocytopenia. Pulmonary involved for hypercarbic respiratory failure compensating somewhat with BiPAP noninvasive ventilation and congestive heart failure for further management. PAST MEDICAL HISTORY: Reflux disease, myelodysplastic disorder, seizure disorder, coronary artery disease, hypertension, peripheral vascular disease, diastolic heart failure, moderate aortic stenosis. SOCIAL HISTORY: She is an assisted living resident. No alcohol use. FAMILY HISTORY: Hypertension. REVIEW OF SYSTEMS: As detailed in history of presenting illness. Otherwise noncontributory. PAST SURGICAL HISTORY: EGD this admission. Otherwise like in history of presenting illness. MEDICATIONS: In the hospital reviewed and include Tylenol, Cardizem, ertapenem, nebulized treatment. Levophed was discontinued. She has on Sandostatin drip, Protonix, and IV fluid which I am going to discontinue given the pulmonary vascular congestion. ALLERGIES: In the hospital reviewed and they include penicillin and morphine. PHYSICAL EXAMINATION: General: She is awake, on BiPAP. Vital Signs: Noted. Head and Neck: Trachea midline. Chest: Bilateral crackles. Cardiac: S1, S2. Abdomen: Nontender on examination. Extremities: There is +1 pedal edema. Neurological: Awake, lethargic, communicative. LABS AND INVESTIGATIONS: ABG, chest x-ray, CBC, CMP reviewed. Other physicians notes including cardiology, GI, and hematology were also reviewed. PH is 7.17, pCO2 83, PO2 144 on BiPAP 20 and 16 with FiO2 of 60%. ProBNP is 28,559. Chest x-ray from yesterday was reviewed and showed bilateral infiltrates. ASSESSMENT AND PLAN: This is a 70-year-old female with past history as above, has MDS, atrial fibrillation, anemia, congestive heart failure, respiratory failure, hypercarbia, chronic obstructive pulmonary disease is possible. PLAN: 1. She is compensating with BiPAP. 2. Gentle p.r.n. diuresis given . 3. Follow up labs. Other teams including cardiology, hematology, and GI are following and appreciated. Thank for the courtesy of this consult.
--- NOTE | 2016-06-27 16:04 | ECHO REPORT ---
ORDER DATE: 06/26/2016 ECHOCARDIOGRAPHIC MEASUREMENTS: 1. Interventricular septum 1.4 2. Left ventricular posterior wall 1.3. 3. Diastolic diameter 4.5. 4. Left atrium 5. 5. Aorta 3. FINDINGS: 1. There is moderate to severe biatrial enlargement. 2. Right ventricle is dilated with reduced right ventricular systolic function. 3. Aortic valve leaflets are calcified, trileaflet. 4. Mitral valve was normal. Is mildly thickened. There is significant mitral annular calcification. 5. Technically suboptimal study. Poor acoustic window. 6. Normal left ventricular cavity size with hyperdynamic left ventricular systolic function. Estimated ejection fraction of 70-75%. 7. Peak velocity across the aortic valve was 3.5 m/sec with a mean gradient of 27 mmHg. Peak gradient of 51 mmHg. There is moderate aortic stenosis associated with mild aortic regurgitation; however, on planimetry the aortic valve appeared to be calcified opening reasonably well, more in keeping with mild to moderate aortic stenosis. Technically suboptimal study. 8. There is moderate eccentric tricuspid regurgitation. Peak velocity across the tricuspid valve was 5.3 m/sec, with an estimated pulmonary artery systolic pressure of 120 mm Hg. There is severe pulmonary arterial hypertension. There is mild mitral regurgitation. 9. Mild stenosis across the mitral valve cannot be ruled out, with a maximum inflow velocity of 2 m/sec. There was significant mitral annular calcification as well. 10. There is no pericardial effusion.
[2016-06-27] MEDS: SANDOSTATIN 500 MICROGM in D5W 100 ML IV SCH (17:15)
--- NOTE | 2016-06-27 17:21 | PROGRESS NOTE ---
DATE: 06/27/2016 SUBJECTIVE: Ms Valentino is currently off IV Cardizem. She is currently wearing BiPAP. PHYSICAL EXAMINATION: Vital signs: She is afebrile. Heart rate is in the 80s to 90s. Blood pressure 116/40. Her I's and O's are markedly positive. She has had roughly 350 mL out over the shift, 200 mL since the dose of IV Lasix was given around 1:30 to 2 p.m. or so. General: No acute distress. Cardiovascular: She is in a regular rate and rhythm. Telemetry currently shows sinus. Chest: Coarse bilateral breath sounds. No increased work of breathing. Abdomen: Soft, nontender. PERTINENT DATA: White count is 5.3, hematocrit 21. Platelet count is 35,000. Her sodium was not checked today. Last time she had an albumin checked was the and it was 2.3. We will recheck a CMP in the morning. ASSESSMENT: 1. Volume overload. 2. Pancytopenia. 3. Respiratory failure. PLAN: We will proceed with p.r.n. diuresis. She got some Lasix today. We will recheck an albumin in the morning. Likely will administer some IV albumin. She is getting some blood presently. We will likely try to give another dose of diuretic in the morning.
[2016-06-27] MEDS ORDERED: NS 500 ML ONE (18:41)
[2016-06-27] MEDS ORDERED: SODIUM CHLORIDE 0.9% 10 ML ONE (18:41)
[2016-06-27] MEDS: INVANZ IV SCH (20:36)
[2016-06-27] MEDS: NS IV SCH (20:36)
[2016-06-28] MEDS: ULTRAM PO PRN (03:52)
[2016-06-28 04:31] LABS: BE 5.7 mmoll (-3.0-3.0); BLOOD TYPE ARTERIAL; METHB 1.5 % (0.0-1.5); PO2(98.6) 75 mmHg (60-100); SAMPLE BLOOD; SAO2 96.7 % (95.0-100.0); THB 8.9 g/dL (11.5-17.4); pH(98.6) 7.23 (7.35-7.45)
[2016-06-28 04:32] LABS: ALLEN TEST YES; DRAW SITE R RADIAL; O2(CT) 11.9 mL/dL (15.0-23.0)
[2016-06-28 04:36] LABS: MODALITY BI PAP
[2016-06-28 04:37] LABS: PCO2(98.6) 83 mmHg (35-45)
[2016-06-28 06:07] LABS: BASO% 0.8 % (0.0-0.8); EOS# 0.04 X1000 (0.0-0.7); EOS% 0.6 % (0.0-10.0); HEMATOCRIT 32.6 % (37.0-47.0); HEMOGLOBIN 10.2 g/dL (12.0-16.0); IMM GRAN# 0.27 X1000 (0.0-0.04); IMM GRAN% 4.3 % (0.0-0.5); LYMPH# 1.13 X1000 (1.2-3.4); LYMPH% 17.9 % (20.5-51.1); MANUAL DIFF NEEDED? YES; MCH 28.8 PG (27-31); MCHC 31.3 g/dL (33-37); MCV 92.1 FL (81-99); MONO% 7.9 % (1.7-9.3); MPV 10.7 FL (7.4-10.4); NEUT% 68.5 % (42.2-75.2); PLT 72 X1000 (130-400); RBC 3.54 XMIL (4.2-5.4)
[2016-06-28 06:09] LABS: ALBUMIN 2.6 g/dL (3.5-5.0); CALCIUM 7.8 mg/dL (8.8-10.2); POTASSIUM 3.1 mmol/L (3.5-5.1); TOTAL BILIRUBIN 1.03 mg/dL (0.20-1.00); TOTAL PROTEIN 5.9 g/dL (6.3-8.3)
[2016-06-28] MEDS: PROTONIX IV SCH ×2 (06:21→17:08)
--- NOTE | 2016-06-28 06:41 | Diag Imaging Result Document ---
PROCEDURE NAME: CHEST-1 VIEW - 06/28/2016 SEMIUPRIGHT PORTABLE CHEST: COMPARISON: 06/26/2016. FINDINGS: There is near complete opacification of the left hemithorax. There are dense infiltrates in the right upper lobe. No right-sided effusion although I believe there is a left pleural effusion. IMPRESSION: Interval worsening with near complete opacification of the left hemithorax on the current study.
[2016-06-28 06:57] LABS: BANDS 13 % (0-1); LYMPHS 12 % (21-51); MONO 7 % (1-9); NRBC 1 % (0-0)
[2016-06-28] MEDS: XOPENEX NEB INH PRN ×5 (08:09→22:57)
[2016-06-28] MEDS: ATROVENT NEB INH PRN ×5 (08:09→22:57)
[2016-06-28] MEDS ORDERED: NS 250 ML ONE (08:19)
--- NOTE | 2016-06-28 08:36 | Diag Imaging Result Document ---
PROCEDURE NAME: ABDOMEN FLAT/UPRIGHT - 06/28/2016 PORTABLE UPRIGHT AND SUPINE ABDOMEN, TWO VIEWS: FINDINGS: The majority of the right side of the abdomen is not included on this study. A nasogastric tube overlies the stomach. There is near complete opacification of the lower left hemithorax. The bowel loops are not distended. No organomegaly. IMPRESSION: Limited exam. No definite abdominal abnormality although there appears to be a large left effusion with atelectasis and infiltrate.
[2016-06-28] MEDS ORDERED: ATIVAN IV PRN (10:31)
--- NOTE | 2016-06-28 10:31 | Diag Imaging Result Document ---
PROCEDURE NAME: CHEST-PORTABLE - 06/28/2016 PORTABLE SEMIUPRIGHT CHEST: COMPARISON: Comparison is made to the study performed earlier. FINDINGS: Interval placement of a left-sided PICC line. The tip overlies the [id number] superior vena cava. There continues to be opacification of the left hemithorax with dense infiltrates in the upper right lung. No change in the nasogastric tube. IMPRESSION: Placement of a left-sided PICC line with the tip overlying the [id number] superior vena cava.
[2016-06-28] MEDS: MORPHINE IV PRN ×3 (11:15→15:18)
[2016-06-28] MEDS: SANDOSTATIN 500 MICROGM in D5W 100 ML IV SCH ×2 (11:53→14:26)
[2016-06-28] MEDS ORDERED: ALBUMIN 25% IV ONE (13:56)
--- NOTE | 2016-06-28 14:12 | PROGRESS NOTE ---
DATE: 06/28/2016 SUBJECTIVE: Ms Valentino is on BiPAP. She is minimally responsive right now. She is able to open her eyes and nod yes or no but not much more than that presently. PHYSICAL EXAMINATION: Vital signs: She is afebrile. Heart rate of 103, blood pressure 124/68. General: She is in no acute distress. Cardiovascular: She is in a regular rate and rhythm. Currently her heart rate was in the 80s to 90s at the time my examination and in sinus. Chest exam: She has some coarse bilateral breath sounds, noted to have some expiatory wheezes as well. Abdomen: Soft, nontender, nondistended. Skin Exam: Warm and dry throughout. PERTINENT DATA: White count 6.3, hematocrit 32.6 which is up from 21, platelet count is 72,000 which is up from 35,000. ABG had a pH of 7.23, pCO2 of 83. Her lactate level was 0.9. Sodium 144, potassium 3.1, BUN 32, creatinine 1.3, 34 and 1.1 on the 14th. Her albumin level is 2.6. ASSESSMENT: 1. Respiratory failure. 2. Pancytopenia. 3. Hypercapnic respiratory failure. PLAN: Patient's I's and O's continue to be significantly positive. Her urine amount output yesterday was 805. Today it has been 800 thus far. We will give her a dose of albumin as her albumin was in the 2.5 range. Diltiazem is being held right now. The patient has been made DNR.
[2016-06-28] MEDS: CARDIZEM 100 MG/NS 100 ML IV SCH (14:26)
[2016-06-28] MEDS ORDERED: NS 500 ML IV ONE (17:13)
[2016-06-28] MEDS ORDERED: NS 1,000 ML IV SCH (17:15)
[2016-06-28] MEDS: INVANZ IV SCH (21:41)
[2016-06-28] MEDS: NS IV SCH (21:41)
[2016-06-29] MEDS: XOPENEX NEB INH PRN (03:20)
[2016-06-29 04:27] VITALS: BP 74/53
[2016-06-29 04:39] LABS: ALLEN TEST YES; BE -5.1 mmoll (-3.0-3.0); BLOOD TYPE ARTERIAL; DRAW SITE R RADIAL; METHB 1.4 % (0.0-1.5); O2(CT) 17.3 mL/dL (15.0-23.0); PO2(98.6) 84 mmHg (60-100); SAMPLE BLOOD; SAO2 97.2 % (95.0-100.0); THB 13.1 g/dL (11.5-17.4)
[2016-06-29 04:41] LABS: MODALITY BI PAP
[2016-06-29 04:42] LABS: PCO2(98.6) 91 mmHg (35-45); pH(98.6) 7.08 (7.35-7.45)
[2016-06-29 06:16] LABS: BASO% 1.6 % (0.0-0.8); EOS# 0.06 X1000 (0.0-0.7); EOS% 0.7 % (0.0-10.0); HEMATOCRIT 35.1 % (37.0-47.0); HEMOGLOBIN 10.8 g/dL (12.0-16.0); IMM GRAN# 0.48 X1000 (0.0-0.04); IMM GRAN% 5.5 % (0.0-0.5); LYMPH# 2.81 X1000 (1.2-3.4); LYMPH% 32.4 % (20.5-51.1); MANUAL DIFF NEEDED? YES; MCH 29.3 PG (27-31); MCHC 30.8 g/dL (33-37); MCV 95.1 FL (81-99); MONO# 0.53 X1000 (0.11-0.59); MONO% 6.1 % (1.7-9.3); MPV 10.9 FL (7.4-10.4); NEUT% 53.7 % (42.2-75.2); PLT 49 X1000 (130-400); RBC 3.69 XMIL (4.2-5.4)
[2016-06-29 06:29] LABS: CALCIUM 7.8 mg/dL (8.8-10.2)
[2016-06-29 06:41] LABS: BANDS 20 % (0-1); BASO 2 % (0-1); EOS 2 % (1-10); LYMPHS 28 % (21-51); MONO 8 % (1-9); NRBC 1 % (0-0); POLYCHROM OCCASIONAL
--- NOTE | 2016-06-30 04:06 | DISCHARGE SUMMARY ---
ADMISSION DATE: 06/23/2016 DISCHARGE DATE: 06/29/2016 HOSPITAL COURSE: The patient was admitted on 06/23/2016. This is a 70-year-old who is a resident of [facility]. Presented to the emergency room by EMS. Reports from [place] saying the patient was having altered baseline mental status. On arrival to the emergency room, alert and oriented. She could tell her birthday. She knew she was in the hospital, although she was not sure if it was [place] or [place]. She was able to tell where she lives. She could give no specific complaints. I asked her why she was where she was. She told me because, "I would not do what they said. I would not stand up. They sent me here to teach me a lesson." At the time of the interview, the patient was in Trendelenburg with blood pressures that were 96 to 98 to 104 systolic. Heart rate was 98 to 102. She was on oxygen at 3 L. Found to have a hemoglobin of 5.7, hematocrit 18, platelet count 42,000. Prior lab work when she was is in the hospital in March showed a hemoglobin of 8 to 9.6, hematocrit 26 to 30. She was admitted with a suspected GI bleed, history altered mental status, acute kidney injury, hypoxemia, hyponatremia, hyperkalemia, and felt that she had some aortic stenosis, although looking through, it looked like it was aortic sclerosis. Her ejection fraction by previous echocardiogram showed 75%. She has had a history of an extended spectrum beta lactamase positive E. coli urinary tract infection so was treated, put on antibiotics empirically. She showed continued decline. Started having more trouble breathing. We placed a PICC line. There was opacification of the left hemothorax. Pulmonary was consulted. Was consenting a bronchoscopy. Family wanted to not do anything invasive and go for comfort measures. She was put on BiPAP and showed steady decline. Blood pressure and pulse dropped, and she miter operator. on 06/29/2016. This was at 5:55 a.m. on 06/29/2016. CAUSE OF : Pneumonia, left-sided. OTHER DIAGNOSES: 1. Gastrointestinal bleed. 2. Pancytopenia. 3. Note, she also did have a history of myelofibrosis.
--- NOTE | 2016-07-01 08:34 | CONSULTATION ---
DATE OF CONSULTATION: 06/26/2016 CHIEF COMPLAINT: Anemia and thrombocytopenia. HISTORY OF PRESENT ILLNESS: Ms. Valentino is a 70-year-old, female, resident of [facility]. She presented to [facility] Emergency Department via EMS with complaints of altered mental status according to [facility] staff. On arrival to the emergency department, the patient was alert and oriented. Upon presentation to [facility], the patient's systolic blood pressure was in the 90s, heart rate was 102. The patient does have a history of MDS, but has not been seen in greater than 2 years in clinic. She was admitted ultimately for GI bleed. She was found to be anemic with a hemoglobin of 5.7, platelet count was found to be 42,000, for which we are consulted. PAST MEDICAL HISTORY: 1. Aortic stenosis. 2. Chronic obstructive pulmonary disease. 3. Atrial fibrillation. 4. Diastolic heart failure with an ejection fraction of 75%. 5. Bipolar disorder. 6. Gastroesophageal reflux disease. 7. Myelodysplasia. PAST SURGICAL HISTORY: 1. Hysterectomy. 2. Ileal bypass. 3. Cystoscopy. 4. Carotid endarterectomy. 5. Lower extremity bypass for peripheral vascular disease. SOCIAL HISTORY: The patient denies alcohol or illicit drugs. She did smoke up until 2 years ago. FAMILY HISTORY: Negative for any oncologic or hematologic disease. MEDICATIONS ON ADMISSION: Medication list reconciliation is currently pending. ALLERGIES: To penicillin and morphine. LABORATORY DATA: White blood cell count 6.37, hemoglobin 5.7, hematocrit 18.5, platelets 42,000. INR 1.41. Sodium 128, potassium 5.6. BUN 43, creatinine 1.5 glucose 97. Troponin 0.033. Blood alcohol level of 0. Urinalysis is negative. Urine drug screen is positive for opiates. REVIEW OF SYSTEMS: A 14 point review of systems was attempted and is unable to be obtained secondary to present altered mental status. PHYSICAL EXAMINATION: General Appearance: Ms. Valentino is a very ill-appearing 70-year-old, female, lying supine in bed. Currently on BiPAP. HEENT: Normocephalic, atraumatic. Mucous membranes are pale and dry. Sclerae is anicteric. Extraocular movements intact. Neck: Supple. Lungs: With coarse breath sounds throughout. Chest expansion is equal bilaterally. Cardiovascular: S1, S2 is heard. Abdomen: Soft, nondistended, diffusely tender. Bowel sounds positive in all quadrants. No rebound or guarding noted. Extremities: Without clubbing or cyanosis. She does have 3+ bilateral lower extremity edema. Dermatologic: No rashes, bruises, or lesions. She does have petechiae covering chest. Neurologic: The patient is awake. She is oriented to name only. She has no focal motor deficit. ASSESSMENT AND PLAN: 1. Anemia with elevated LDH but no schistocyte seen on smear. We will obtain iron studies and replete IV iron as needed. Additionally, we will transfuse packed red blood cells as needed. 2. Thrombocytopenia in the setting of liver disease, plus or minus marrow failure. We will obtain a DIC panel. 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 Will transfuse to keep platelets greater than 50,000 while bleeding. 3. Gastrointestinal bleed. The patient will undergo esophagogastroduodenoscopy and colonoscopy by Dr. Grady. 4. Elevated INR. We will give the patient Vitamin K. We will continue to follow PT/INR. 5. Acute kidney injury. The patient is currently being gently hydrated. 6. Hypoxemia. The patient did have a room air O2 saturation of 89% on arrival. She is currently wearing BiPAP. 7. Beta lactamase positive Escherichia coli urinary tract infection. The patient is currently being followed by Dr. Jules. We will follow along with you and make further recommendations pending outcome. Dictated by RUTHIE Garcia for Nabor Shabazz MD
== END 2016-06-29 05:55 | disposition expired | DRG 377 ==
LOC: P.ED 15:35 → EDIPHOLD 18:05 → ICU 22:19
PROVIDERS: ATTEND Emergency Medicine
PROC: 30233N1 Transfusion of Nonautologous Red Blood Cells into Peripheral Vein, Percutaneous Approach (ICD-10-PCS; 2016-06-23)
PROC: 30233R1 Transfusion of Nonautologous Platelets into Peripheral Vein, Percutaneous Approach (ICD-10-PCS; 2016-06-24)
PROC: 0DJ08ZZ Inspection of Upper Intestinal Tract, Via Natural or Artificial Opening Endoscopic (ICD-10-PCS; principal; 2016-06-24 10:51)
PROC: 0DJD8ZZ Inspection of Lower Intestinal Tract, Via Natural or Artificial Opening Endoscopic (ICD-10-PCS; 2016-06-25)
PROC: 02HV33Z Insertion of Infusion Device into Superior Vena Cava, Percutaneous Approach (ICD-10-PCS; 2016-06-28)
DX: K92.1 Melena (principal); J96.92 Respiratory failure, unspecified with hypercapnia; J96.91 Respiratory failure, unspecified with hypoxia; N17.9 Acute kidney failure, unspecified; J18.9 Pneumonia, unspecified organism; I11.0 Hypertensive heart disease with heart failure; D68.9 Coagulation defect, unspecified; J44.0 Chronic obstructive pulmonary disease with (acute) lower respiratory infection; I50.32 Chronic diastolic (congestive) heart failure; E87.1 Hypo-osmolality and hyponatremia; F03.90 Unspecified dementia, unspecified severity, without behavioral disturbance, psychotic disturbance, mood disturbance, and anxiety; J44.1 Chronic obstructive pulmonary disease with (acute) exacerbation; I27.2 Other secondary pulmonary hypertension; D46.9 Myelodysplastic syndrome, unspecified; I48.91 Unspecified atrial fibrillation; J84.10 Pulmonary fibrosis, unspecified; G40.909 Epilepsy, unspecified, not intractable, without status epilepticus; F31.9 Bipolar disorder, unspecified; I73.9 Peripheral vascular disease, unspecified; Z87.891 Personal history of nicotine dependence; E87.5 Hyperkalemia; K44.9 Diaphragmatic hernia without obstruction or gangrene; I25.10 Atherosclerotic heart disease of native coronary artery without angina pectoris; K21.9 Gastro-esophageal reflux disease without esophagitis; G89.29 Other chronic pain; Z98.84 Bariatric surgery status; K20.8 Other esophagitis; K29.70 Gastritis, unspecified, without bleeding; K56.41 Fecal impaction; Z53.8 Procedure and treatment not carried out for other reasons; Z82.49 Family history of ischemic heart disease and other diseases of the circulatory system; Z66 Do not resuscitate; Z95.9 Presence of cardiac and vascular implant and graft, unspecified; R23.3 Spontaneous ecchymoses; Z79.899 Other long term (current) drug therapy; Z79.891 Long term (current) use of opiate analgesic; I35.8 Other nonrheumatic aortic valve disorders; K76.9 Liver disease, unspecified; Z98.0 Intestinal bypass and anastomosis status; E87.6 Hypokalemia; Z99.81 Dependence on supplemental oxygen; M19.90 Unspecified osteoarthritis, unspecified site; M32.9 Systemic lupus erythematosus, unspecified
CPT/HCPCS: 36430; 36569; 51702; 71010; 74020; 76700; 80048; 80053; 80074; 80305; 81001; 82103; 82140; 82270; 82390; 82550; 82553; 82728; 82805; 82948; 83516; 83540; 83550; 83605; 83615; 83735; 83880; 84155; 84165; 84484; 85025; 85027; 85045; 85379; 85384; 85610; 85730; 86038; 86255; 86850; 86900; 86901; 86920; 87040; 93005; 93010; 93306; 94640; 94660; 94761; 96365; 96372; 96375; C9113; G0480; J1335; J1940; J2060; J2250; J2270; J2354; J2405; J3430; J7030; J7040; J7050; J7060; J7120; P9016; P9035; 80320; P9047; S0164